=== PATIENT | female | born 1985 | race African-American/Black ===

== ENCOUNTER 2020-09-30 19:56 | Emergency (ER) | payer BC ==
[~2020-09-30] VITALS: Ht 170.2 cm; Wt 81.6 kg
[2020-09-30 20:00] VITALS: BP 121/74
[2020-09-30] MEDS ORDERED: DOPPLER MC ONE (20:11)
--- NOTE | 2020-09-30 20:18 | NUR ---
35 Y/O FEMALE BIB SELF FOR C/O VAGINAL BLEEDING X 1 HOUR. PATIENT STATES 17 WEEKS . PT STATES INTERMITTENT 8/10 PELVIC, CRAMPING, TIGHTNESS PAIN. NO CLOTTING NOTED. PT STATES SHE HAD VAGINAL BLEEDING X1 MONTH AGO. HEART TONES ON DOPPLER READ 203. MEDHX: HCRIS ZAPIEN
--- NOTE | 2020-09-30 20:27 | NUR ---
DR JANE AT BEDSIDE EXAMINING PT
[2020-09-30 20:50] VITALS: BP 121/74
--- NOTE | 2020-09-30 20:50 | NUR ---
Patient discharged with v/s stable. Written and verbal after care instructions given and explained. Patient verbalized understanding. Ambulatory with steady gait. All questions addressed prior to discharge. Advised to follow up with PMD.
== END 2020-09-30 20:50 | disposition home or self-care (01) ==
LOC: MED 19:56
DX: O46.8X2 Other antepartum hemorrhage, second trimester (principal); Z3A.17 17 weeks gestation of pregnancy
CPT/HCPCS: 81002; 81025; 99284